=== PATIENT | female | born 1990 | race Caucasian/White ===

== ENCOUNTER 2020-03-20 16:09 | Outpatient (CLI) | payer OTHER, SELFPAY ==
--- NOTE | ~2020-03-20 | US_ITS ---
EXAMINATION: US right upper quadrant EXAM DATE: 03/20/2020 16:44 INDICATION: Abdominal pain. TECHNIQUE: Multiple grayscale and Doppler images of the abdomen right upper quadrant were obtained (b y a technologist who performed the scan) and subsequently reviewed. There is no prior study for kallie bartlett. FINDINGS: The pancreatic head and body are normal in appearance. The pancreatic tail is not visualized. The l iver has normal echogenicity and contour. There are no focal liver lesions identified. There is no evidence of intrahepatic biliary duct dilation. Portal venous flow was seen in the hepatopedal, nor mal direction and has normal Doppler waveform. No right-sided hydronephrosis. Common bile duct measures 5 mm, which is normal. Gallbladder is mildly distended with several sizable gallstones in the fundus. The gallbladder wall measures about 3 mm in thickness, borderline abnormal ly thickened. No pericholecystic fluid. Technologist performing exam reports patient did not demonst rate sonographic Cheng's sign. Please note that this sign is less reliable in patients who have rec eived pain medication. IMPRESSION: Cholelithiasis, borderline thickening of gallbladder wall, but no sonographic Cheng's si gn, pericholecystic fluid or gallbladder distention. Chronic cholecystitis? Reviewed, dictated and finalized at location A. IMPRESSION: Cholelithiasis, borderline thickening of gallbladder wall, but no s onographic Cheng's sign, pericholecystic fluid or gallbladder distention. Ch ronic cholecystitis?
== END 2020-03-20 16:10 | disposition home or self-care (01) ==
LOC: ANHIMG 16:14
PROVIDERS: PCP Internal Medicine; Visit Provider Internal Medicine
DX: R10.9 Unspecified abdominal pain (principal); K80.20 Calculus of gallbladder without cholecystitis without obstruction
CPT/HCPCS: 76705

== ENCOUNTER 2020-04-02 10:52 | Emergency (ER) | payer OTHER, SELFPAY ==
--- NOTE | ~2020-04-02 | CT_ITS ---
EXAMINATION: CT abdomen pelvis w con EXAM DATE: 04/02/2020 13:31 INDICATION: Right upper quadrant pain. History of gallstones. TECHNIQUE: Spiral CT of the abdomen and pelvis was performed following intravenous injection of 100 m L Omnipaque 350. Axial, coronal and sagittal images were reviewed. The dose-length product (DLP) fo r this examination was 656.78 mGy-cm. The exposure was tailored according to patient size (auto mA e xposure control), and iterative reconstruction (ASIR) was used as additional dose reduction technique . There is no prior study for comparison. Correlation was made with right upper quadrant sonogram 10/2020. FINDINGS: The liver, spleen, adrenal glands and pancreas are unremarkable. Gallbladder is moderately distended with gallstone. No adjacent inflammation. Portal and splenic veins are patent. Kidneys e nhance symmetrically. There is no hydronephrosis. The uterus and ovaries are unremarkable, no adne xal mass. The bladder is unremarkable. There is no retroperitoneal or pelvic lymphadenopathy. The appendix is normal. The stomach and small bowel are unremarkable. There is expected amount of c olonic stool. No free intraperitoneal gas. The heart is normal in size. There are no pericardial or pleural effusions. The lung bases are unremarkable. There are no osteoblastic or osteolytic les ions identified. IMPRESSION: Moderately distended gallbladder with gallstone but no adjacent inflammation or biliary d ilation. If chronic cholecystitis or biliary dysfunction suspected clinically, consider HIDA scan. Reviewed, dictated and finalized at location A. IMPRESSION: Moderately distended gallbladder with gallstone but no adjacent inf lammation or biliary dilation. If chronic cholecystitis or biliary dysfunction suspected clinically, consider HIDA scan.
[2020-04-02 11:05] VITALS: BP 134/98; PULSE 80; RESP 16; TEMP 36.4; O2SAT 100
[2020-04-02 11:40] LABS: Basophils Absolute Auto 0.1 K/mm3 (0.0-0.1); Basophils Percent Auto 0.5 % (0.2-1.2); Eosinophils Absolute Auto 0.1 K/mm3 (0-0.3); Eosinophils Percent Auto 0.7 % (0-4.4); Hematocrit 44.6 % (37.0-47.0); Hemoglobin 15.3 g/dL (12.0-15.0); Immature Granulocyte Absolute 0.02 K/mm3 (0.00-0.031); Immature Granulocyte Percent A 0.2 % (0-0.5); Lymphocytes Absolute Auto 1.75 K/mm3 (0.9-3.2); Lymphocytes Percent Auto 16.5 % (18.3-44.2); Mean Corpuscular HGB Conc 34.3 g/dl (32-36); Mean Corpuscular Hemoglobin 31.4 pg (26-34); Mean Corpuscular Volume 91.4 fl (80-100); Mean Platelet Volume 11.8 fl (7.4-10.4); Monocytes Absolute Auto 0.6 K/mm3 (0.1-0.6); Neutrophils Absolute Auto 8.1 K/mm3 (1.3-6.7); Neutrophils Percent Auto 76.1 % (45.5-73.1); Platelet Count Result 267 k/mm3 (150-375); Red Blood Count 4.88 M/mm3 (4.2-5.4); Red Cell Distribution Width 12.7 % (11.5-14.5); White Blood Count 10.6 K/mm3 (4.5-10.0)
--- NOTE | 2020-04-02 11:47 | ED.ABDPAIN ---
HPI - Abdominal Pain General Chief Complaint: Abdominal Pain Stated Complaint: abd pain Time Seen by Provider: 04/02/20 11:29 Source: patient Mode of arrival: ambulatory Limitations: no limitations History of Present Illness HPI narrative: This patient is a 30 year old female who presents for evaluation of right upper abdominal pain. Patient states she has intermittent aching pain to right upper quadrant since Mid February. She has been evaluated by her PCP and she had a gallbladder ultrasound 2 weeks ago that showed gallstones. She is waiting on an appointment with a general surgeon. She has come to the ER today because this morning around 4 am she developed severe right upper abdominal pain with nausea and vomiting. Her pain has continued to be present and she states it is never lasted this long. She ate a hamburger and albanian fries last night because she did not know she was on low fat diet. MD elicited complaint: abdominal pain Onset (ago): hour(s) Location: RUQ Associated symptoms: nausea and vomiting Related Data Allergies Allergy/AdvReac Type Severity Reaction Status Date / Time No Known Allergies Allergy Verified 04/02/20 11:08 Review of Systems Review of Systems: All systems reviewed & are unremarkable except as noted in HPI and below Constitutional: Constitutional: Denies chills and Denies fever(s) Respiratory: Respiratory: Denies cough and Denies dyspnea Gastrointestinal: Gastrointestinal: Reports abdominal pain, Reports nausea and Reports vomiting Genitourinary: Genitourinary: Denies hematuria and Denies flank pain PMFSH Past Medical History Medical History (Updated 04/02/20 @ 14:22 by Brianda Moreira MD) Hypertension Patient denies medical problems Surgical History Surgical History (Updated 04/02/20 @ 11:47 by Brianda Moreira MD) No pertinent past surgical history Family History Family History (Updated 03/26/20 @ 09:54 by July Bailey) Father Gout Other Unknown family medical history Social History Social History Smoking status: Never smoker Substance use: never Gender identity (if verbalized by the patient): Female Spiritual care concerns: No Exam Narrative: Exam Narrative: GENERAL: Well-appearing, well-nourished, and in no acute distress. HEAD: Normocephalic, atraumatic EYES: PERRLA and EOMI, conjunctiva clear without discharge THROAT:Mucous membranes moist, NECK: Supple, without lymphadenopathy or mass RESPIRATORY: No respiratory distress, Airway patent, Respirations non-labored, Clear to auscultation without rales, rhonchi or wheeze HEART: Regular rate and rhythm. No murmur heard. Normal peripheral pulses. ABDOMEN: Soft, RUQ, nondistended, normal active bowel sounds. No masses. No rebound or guarding, No organomegaly. EXTREMITIES: No edema, normal strength with full range of motion. SKIN: Warm, dry, normal color without rash NEURO: Alert and oriented x3. CN 2-12 grossly intact. No focal deficits. PSYCH: Normal mood and affect. Course Reevaluation(s) Reevaluation #1: PAtient states she feels better. She has an appointment with general surgeon tomorrow. I stressed low fat diet. Date: 04/02/20 Time: 14:20 Vital Signs Vital signs: Vital Signs Temperature 97.6 F 04/02/20 11:05 Pulse Rate 80 04/02/20 11:05 Respiratory Rate 16 04/02/20 11:05 Blood Pressure 134/98 H 04/02/20 11:05 Pulse Oximetry 100 04/02/20 11:05 Temperature 97.6 F 04/02/20 11:05 Pulse Rate 72 04/02/20 14:31 Respiratory Rate 16 04/02/20 14:31 Blood Pressure 118/59 L 04/02/20 14:31 Pulse Oximetry 100 04/02/20 14:31 MDM - Abdominal Pain Lab Data Attestation: I reviewed the patient's lab results. Result diagrams: 04/02/20 11:32 04/02/20 11:32 Labs: Lab Results 04/02/20 04/02/20 04/02/20 Range/Units 11:32 11:32 11:32 WBC 10.6 H
[2020-04-02 11:51] LABS: Add Urine Microscopic? YES; Appearance Urine Clear (Clear); Bacteria Urine Trace /hpf; Bilirubin Urine Negative (Negative); Blood Urine Negative (Negative); Color Urine Yellow (Yellow); Glucose Urine UA Negative (Negative); Ketones Urine Trace mg/dL (Negative); Leukocyte Esterase Ur Trace LEU/UL (Negative); Mucus Urine Few /lpf; Nitrate Urine Negative (Negative); Protein Urine 1+ mg/dL (Negative); RBC Urine 0-2 /hpf (0-2); Specific Grav Ur 1.025 (1.001-1.035); Squamous Epithelial Cell Urine Many /hpf (Few); Urobilinogen Urine Negative mg/dL (<2.0); WBC Urine 0-3 /hpf
[2020-04-02 11:53] LABS: Alanine Aminotransferase 21 U/L (4-35); Albumin Level 4.6 g/dL (3.5-5.1); Alkaline Phosphatase 102 U/L (38-126); Aspartate Amino Transferase 34 U/L (14-36); Bilirubin,Total 0.7 mg/dL (0.2-1.3); Blood Urea Nitrogen 6 mg/dL (7-17); Calcium 9.7 mg/dL (8.4-10.2); Carbon Dioxide 26 mmol/L (22-30); Chloride 104 mmol/L (98-107); Estimated CRCL calculation 118 ml/min; Estimated Glomerular Filt Rate > 60; Glucose 105 mg/dL (65-105); Lipase 64 U/L (23-300); Potassium 4.1 mmol/L (3.4-5.0); Sodium 136 mmol/L (137-145)
[2020-04-02] MEDS: ONDANSETRON INJ 4 MG/2 ML VIAL IV PUSH (11:58)
[2020-04-02] MEDS: LACTATED RINGERS 1,000 ML 999 ML IV CONT (11:58)
[2020-04-02 12:00] VITALS: BP 138/75; PULSE 78; RESP 16; O2SAT 100
[2020-04-02] MEDS: KETOROLAC 30 MG/ML VIAL (*BKC) IV PUSH (12:40)
[2020-04-02 13:00] VITALS: BP 129/57; PULSE 69; RESP 16; O2SAT 100
[2020-04-02 14:31] VITALS: BP 118/59; PULSE 72; RESP 16; O2SAT 100
== END 2020-04-02 14:32 | disposition home or self-care (01) ==
PROVIDERS: Emergency Provider General Practice; PCP Internal Medicine
DX: K80.50 Calculus of bile duct without cholangitis or cholecystitis without obstruction (principal); I10 Essential (primary) hypertension
CPT/HCPCS: 36415; 74177; 80053; 81001; 81025; 83690; 85025; 96361; 96365; 96375; 99284; J0131; J1885; J2405; J7120; Q9967

== ENCOUNTER 2020-04-04 00:28 | Outpatient (CLI) | payer OTHER, SELFPAY ==
[2020-04-04 18:07] LABS: SARS-CoV-2 RNA PCR Negative
== END 2020-04-04 00:29 | disposition home or self-care (01) ==
LOC: ANHCOVIDDT 00:28
PROVIDERS: PCP Internal Medicine; Visit Provider Surgery
DX: Z01.812 Encounter for preprocedural laboratory examination (principal); Z20.828 Contact with and (suspected) exposure to other viral communicable diseases
CPT/HCPCS: 87635; C9803; U0003

== ENCOUNTER 2020-04-06 00:48 | Day surgery (SDC) | payer OTHER, SELFPAY ==
[2020-04-03 15:05] VITALS: BMI 31.8
[2020-04-06] VITALS (9 sets, daily range): BP systolic 127–143; BP diastolic 68–90; PULSE 74–104; RESP 11–22; TEMP 36.3–36.8; O2SAT 98–100
--- NOTE | 2020-04-06 11:46 | P.PNAN_ITS ---
Anes - Initial Pre Proc Eval Procedure: Operation Date: 04/06/20 13:30 Proposed Procedures p Laparoscopic Cholecystectomy - Melissa Mccann MD Date/Time: 04/06/20 11:46 Surgeon: Melissa Mccann MD Pre Op Diagnosis: Chronic Cholecystitis, Cholelithiasis Patient Data Age: 30 Gender: F Height: 5 ft 3 in Weight: 80.6 kg Allergies Allergy/AdvReac Type Severity Reaction Status Date / Time No Known Allergies Allergy Verified 04/06/20 11:33 Home Medications Medication Instructions Recorded Confirmed Type hydrocodone-acetaminophen [[place]] 1 tablet PO Q6H PRN #7 tablet 04/02/20 04/03/20 Rx ondansetron HCl [Zofran] 4 mg PO Q8H PRN #10 tablet 04/02/20 04/03/20 Rx acetaminophen [Tylenol Extra 500 mg PO QID PRN 04/03/20 04/06/20 History Strength] ibuprofen 400 mg PO Q6H PRN 04/03/20 04/06/20 History Patient hx anesthesia problems: none Family hx anesthesia problems: none PMFSH Past Medical History Medical History Hypertension Patient denies medical problems Surgical History Surgical History No pertinent past surgical history Family History Family History Father Gout Other Unknown family medical history Social History Social History Smoking status: Never smoker Substance use: never Gender identity (if verbalized by the patient): Female Spiritual care concerns: No Anes - Eval Final PreProcedure Day of Procedure 04/06/20 11:46 Patient weight: obese Heart: regular rate and rhythm Lungs: clear to auscultation Airway: Mallampati scale class II Neurological: alert and oriented Last oral intake: >/= 8 hours ASA classification: II Emergent: no Anesthetic plan: proceed Anesthesia type and monitoring: general ETT and standard monitoring Informed Consent: The patient's anesthetic plan and its attendant risks and benefits were discussed with the patient/family/POA. Questions were solicited and answers provided to the satisfaction of the patient/family/POA.
[2020-04-06] MEDS: SCOPOLAMINE 1.5 MG PATCH TRANSDERM (12:17)
[2020-04-06] MEDS: LACTATED RINGERS 1,000 ML 30 ML IV CONT ×2 (12:17→13:29)
--- NOTE | 2020-04-06 12:23 | WPDHPUPDATE1 ---
History and Physical Update Update Date/Time: 04/06/20 12:23 History and Physical has been reviewed, including an updated exam of the patient. There are NO changes in the patient's condition. Risks, benefits, and alternatives have been discussed and questions answered. Patient agrees to proceed with procedure.
[2020-04-06 12:24] LABS: Amylase 78 U/L (30-110)
[2020-04-06] MEDS: ceFAZolin 2 GM/D5W 50 ML 2 GM/50 ML BAG IVPB (12:28)
[2020-04-06] MEDS: BUPIVACAINE/EPINEPHRINE 0.5% 30 ML VIAL 10 ML INFILTRATE (13:18)
[2020-04-06] MEDS: ONDANSETRON INJ 4 MG/2 ML VIAL IV PUSH ×2 (13:42→15:20)
--- NOTE | 2020-04-06 14:08 | PM.PROC ---
Procedure Note - Detailed Date of procedure: 04/06/20 Pre-op diagnosis: Chronic Cholecystitis, Cholelithiasis Post-op diagnosis: other (acute cholecystitis) Procedure performed: laparoscopic cholecystectomy Description of procedure: The patient was taken to the operating room placed in the supine position. After adequate induction of general anesthesia, the patient was prepped and draped in normal sterile fashion. A time-out was then performed to verify the patient's identity as well as the procedure being performed. I then made a 5 mm incision in the infraumbilical region. Through this, a Veress needle was placed into the peritoneal cavity and CO2 gas was then insufflated. After adequate pneumoperitoneum was achieved, the Veress needle was removed and a 5 mm trocar was placed through this incision. I then placed the laparoscoped through this trocar site and under direct visualization placed a further 12 mm subxiphoid port as well as 2 additional 5 mm ports in the right upper abdomen. The gallbladder was then identified and was noted to be very inflamed. I was able to place a grasper at the dome of the gallbladder and this was retracted anterior and cephalad up over the liver. A 2nd retractor was then placed at the infundibulum and retracted laterally, this allowed visualization of the triangle of Calot. I then was able to visualize the cystic duct in its entirety from its proximal insertion into the gallbladder, to its distal junction with the common hepatic/common bile duct junction. At this point, I carefully skeletonized the proximal cystic duct with the [place] dissector. I then clipped and transected the proximal cystic duct. Next I visualized the cystic artery. Again the artery was skeletonized, clipped, and transected. I then used the Bovie cautery to take down the peritoneal attachments of the gallbladder off the liver bed. Once the gallbladder specimen was completely detached, an endo-pouch was placed through the 12 mm port site. I then placed the gallbladder specimen into the Endo pouch and removed the endo-pouch from the 12 mm port site. The specimen will now be sent to pathology for further review. I then copiously irrigated the right upper quadrant. Hemostasis was noted in the liver bed, the clips were noted to be in good position on both the cystic duct stump and the cystic artery stump. No other pathology was noted in the right upper quadrant. I then moved the laparoscope to the subxiphoid port. No iatrogenic injury or other pathology was noted in the lower abdomen. At this point, the abdomen was desufflated and all ports removed. The fascia of the 12 mm subxiphoid port was closed with a 0 Vicryl figure of 8 suture. All port sites were then closed with 4.O Monocryl subcuticular sutures. Dermabond was placed on each incision. The patient tolerated the procedure well, was extubated in the operating room postoperative and will be transferred to the recovery room in stable condition. Implants: none Anesthesia: GETA Surgeon: Melissa Mccann MD Estimated blood loss (mL): 5 Drains: No Packing: No Pathology: yes Complications: No immediate complications Condition: stable Disposition: PACU Findings: acute cholecystis
== END 2020-04-06 15:35 | disposition home or self-care (01) ==
PROVIDERS: PCP Internal Medicine; Visit Provider Surgery
PROC: 0FT44ZZ Resection of Gallbladder, Percutaneous Endoscopic Approach (ICD-10-PCS; CPT 47562; principal; 2020-04-06 13:30)
DX: K80.10 Calculus of gallbladder with chronic cholecystitis without obstruction (principal); I10 Essential (primary) hypertension; E66.9 Obesity, unspecified; Z68.31 Body mass index [BMI] 31.0-31.9, adult
CPT/HCPCS: 47562; 36415; 82150; 86850; 86900; 86901; 88304; A9270; J0131; J0690; J1100; J2250; J2405; J2704; J2710; J3010; J7120

== ENCOUNTER 2020-08-14 11:22 | Outpatient (CLI) | payer OTHER, SELFPAY ==
[2020-08-14 11:58] LABS: Alanine Aminotransferase 17 U/L (4-35); Albumin Level 4.4 g/dL (3.5-5.1); Alkaline Phosphatase 83 U/L (38-126); Aspartate Amino Transferase 26 U/L (14-36); Bilirubin,Total 0.3 mg/dL (0.2-1.3)
== END 2020-08-14 11:23 | disposition home or self-care (01) ==
PROVIDERS: PCP Internal Medicine
DX: B35.1 Tinea unguium (principal)
CPT/HCPCS: 36415; 80076

== ENCOUNTER 2021-07-02 18:09 | Emergency (ER) | payer OTHER, SELFPAY ==
[2021-07-02 18:20] VITALS: BP 135/86; PULSE 110; RESP 18; TEMP 37.6; O2SAT 100
--- NOTE | 2021-07-02 18:33 | ED.SKABFB ---
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 She now has a weeklong history of pink, raised, crusting quarter sized lesion on her left medial groin crease; symptoms are mild, unrelieved with OTC preparations . No other rash /eruption -she feels like she had a similar lesion in years past on her right lower extremity. No fever, surrounding redness, abdominal pain, lymph nodes, abscess/induration, streaking-but there is some scant discharge [no vaginal discharge-she declines STD testing]. Related Data Home Medications Medication Instructions Recorded Confirmed No Home Medications 07/02/21 07/02/21 Allergies Allergy/AdvReac Type Severity Reaction Status Date / Time No Known Allergies Allergy Verified 07/02/21 18:36 Review of Systems Review of Systems: General/Constitutional: No weight loss,fever Eyes: N0: Redness,discharge Ears/Nose/Throat: No: Epistaxis,ear discharge Respiratory: Denies: Hemoptysis Gastrointestinal: No Vomiting, Bleeding-rectal Skin: No Lumps, REPORTS eruption Neurologic: No Focal Weakness,Sz Hematologic: Denies: Petechiae/Purpura Psychiatric: No: Suicida ideationl All Other Systems: Reviewed and Negative [facility] Past Medical History Medical History (Updated 07/02/21 @ 18:39 by Jan Jasso MD) Hypertension Patient denies medical problems Surgical History Surgical History (Updated 04/18/20 @ 10:28 by Renay Fay) No pertinent past surgical history Status post laparoscopic cholecystectomy 04/03/2020 Family History Family History Father Gout Other Unknown family medical history Social History Social History Smoking status: Never smoker Substance use: never Gender identity (if verbalized by the patient): Female Spiritual care concerns: No Comments At time of signature, agree with nursing past medical, surgical, social and family history. There is no relevant family history pertinent to the presenting complaint Exam Narrative: General Appearance: Overweight/well nourished, Normocephalic, Conjunctiva clear Mouth/Throat: Normal appearing, Supple Respiratory: Airway patent, No respiratory distress GI/: Soft , NT Musculoskeletal: Moves all extremities, Non tender Skin: Warm, Dry; quarter size ecthyma-like lesion on left groin w/o nodes, abscess, streaking Neurological: A&O x3, normal affect Course Vital Signs Vital signs: Vital Signs Temperature 99.7 F H 07/02/21 18:20 Pulse Rate 110 H 07/02/21 18:20 Respiratory Rate 18 07/02/21 18:20 Blood Pressure 135/86 07/02/21 18:20 Pulse Oximetry 100 07/02/21 18:20 Temperature 99.7 F H 07/02/21 18:20 Pulse Rate 110 H 07/02/21 18:20 Respiratory Rate 18 07/02/21 18:20 Blood Pressure 135/86 07/02/21 18:20 Pulse Oximetry 100 07/02/21 18:20 Discharge Plan Discharge Clinical Impression: Folliculitis, Antepartum complication Patient Disposition: Home, Self-Care Condition: Stable Instructions: Antibiotic Form, MRSA (Methicillin-Resistant Staphylococcus Aureus) (ED), Folliculitis (ED) Additional Instructions: Keep photo log of area, follow-up with culture results to [employer]ICE MANAGER on your new patient appointment Take clindamycin with antacid, probiotic and/or food; stop clindamycin if diarrhea occurs Prescriptions: New clindamycin HCl 300 mg capsule 300 mg PO Q6H Qty: 21 RF: 0 mupirocin 2 % ointment 1 a
== END 2021-07-02 18:50 | disposition home or self-care (01) ==
PROVIDERS: Emergency Provider Emergency Medicine; PCP Internal Medicine
DX: O99.711 Diseases of the skin and subcutaneous tissue complicating pregnancy, first trimester (principal); Z3A.00 Weeks of gestation of pregnancy not specified; L73.9 Follicular disorder, unspecified
CPT/HCPCS: 87070; 87075; 87205; 99213; G0463

== ENCOUNTER 2021-07-17 18:14 | Emergency (ER) | payer OTHER, SELFPAY ==
[2021-07-17 18:23] VITALS: BP 140/84; PULSE 97; RESP 18; TEMP 36.9; O2SAT 100
--- NOTE | 2021-07-17 18:49 | ED.GENADULT ---
HPI - General Adult General Chief complaint: Skin/Abscess/Foreign Body Stated complaint: Wound on groin Source: patient Mode of arrival: ambulatory Limitations: no limitations History of Present Illness HPI narrative: Patient is a 31-year-old 8 week female who presents to the urgent care via POV for evaluation of a lump located on genital area that she noticed approx 2 days ago. She reports the area is tender, tight, and swollen . She was seen and treated at this clinic approx 2 weeks ago for an abscess in the same region. She was prescribed an oral and topical antibiotic. She reports the abscess has moderately improved. Denies taking OTC meds for sx. Sitting alleviates tenderness and tightness. Laying down or standing worsens sx. Related Data Home Medications Medication Instructions Recorded Confirmed No Home Medications 07/02/21 07/17/21 Allergies Allergy/AdvReac Type Severity Reaction Status Date / Time No Known Allergies Allergy Verified 07/17/21 18:16 Review of Systems Review of Systems: Denies injury. Pertinent negatives fever, chills, sweats, malaise, poor p.o. intake, change in appetite, headache, LOC, dizziness, streaking, drainage, numbness, tingling, loss of sensation, foreign body sensation, deformity, sob, chest pain, and heart palpitations/murmurs. PMFSH Past Medical History Medical History Hypertension Patient denies medical problems Surgical History Surgical History No pertinent past surgical history Status post laparoscopic cholecystectomy 04/03/2020 Family History Family History Father Gout Other Unknown family medical history Social History Social History Smoking status: Never smoker Substance use: never Gender identity (if verbalized by the patient): Female Spiritual care concerns: No Comments I have reviewed and agree with the patient's past medical, surgical, social, and family hx as documented by the RN. There is no relevant family history pertinent to the presenting complaint. Exam Narrative: GENERAL: Well-appearing, well-nourished, and in no acute distress. HEAD: Normocephalic, atraumatic. No facial swelling appreciated. EYES: PERRLA and EOMI. No evidence of erythema, swelling, or drainage. ENT: Nares clear, no rhinorrhea or epistaxis.Mucous membranes moist and pink. Uvula is midline without erythema and swelling. No evidence of obstruction, petechial rash, cobblestoning, lesions, ulcers, erythema, swelling, exudates, peritonsillar abscess, tenting, or drooling. Breath odor and voice normal. NECK: Supple. No Lymphadenopathy or nuchal rigidity appreciated. CHEST: Bilateral lung mason are clear to auscultation. No respiratory distress. No evidence of cough or pleuritic cp upon examination. HEART: Regular rate and rhythm. No murmur, gallop, or rub heard. EXTREMITIES: Normal range of motion. No edema. SKIN: Warm, dry. No evidence of cellulitis, abscess, streaking, abrasions/lacerations, petechiae, hematoma, contusion, drainage, or bleeding. Large cystlike mass noted to left mons pubis. Mass is hard and mildly tender. Small nontender area of erythema noted under mass. NEURO: No focal deficits. Alert and oriented x3. SPECIAL OBSERVATIONS: Smiling. Laughing. Course Vital Signs Vital signs: Vital Signs Temperature 98.5 F 07/17/21 18:23 Pulse Rate 97 07/17/21 18:23 Respiratory Rate 18 07/17/21 18:23 Blood Pressure 140/84 07/17/21 18:23 Pulse Oximetry 100 07/17/21 18:23 Temperature 98.5 F 07/17/21 18:23 Pulse Rate 97 07/17/21 18:23 Respiratory Rate 18 07/17/21 18:23 Blood Pressure 140/84 07/17/21 18:23 Pulse Oximetry 100 07/17/21 18:23 Due to an elevated blood pres
== END 2021-07-17 18:58 | disposition home or self-care (01) ==
PROVIDERS: Emergency Provider Nurse Practitioner Family; PCP Internal Medicine
DX: O99.891 Other specified diseases and conditions complicating pregnancy (principal); Z3A.08 8 weeks gestation of pregnancy; N90.7 Vulvar cyst
CPT/HCPCS: 99211; G0463

== ENCOUNTER 2021-12-20 15:52 | Outpatient (CLI) | payer OTHER, SELFPAY ==
[2021-12-20] VITALS (10 sets, daily range): BP systolic 118–148; BP diastolic 65–84; PULSE 95–123
[2021-12-20 17:03] LABS: Basophils Absolute Auto 0.1 K/mm3 (0.0-0.1); Basophils Percent Auto 0.5 % (0.2-1.2); Eosinophils Absolute Auto 0.1 K/mm3 (0-0.3); Eosinophils Percent Auto 0.7 % (0-4.4); Immature Granulocyte Absolute 0.16 K/mm3 (0.00-0.031); Immature Granulocyte Percent A 1.6 % (0-0.5); Lymphocytes Absolute Auto 2.53 K/mm3 (0.9-3.2); Lymphocytes Percent Auto 24.9 % (18.3-44.2); Mean Corpuscular HGB Conc 34.3 g/dl (32-36); Mean Corpuscular Hemoglobin 32.6 pg (26-34); Mean Corpuscular Volume 95.1 fl (80-100); Mean Platelet Volume 10.7 fl (7.4-10.4); Monocytes Percent Auto 9.4 % (2.6-8.5); Neutrophils Absolute Auto 6.4 K/mm3 (1.3-6.7); Neutrophils Percent Auto 62.9 % (45.5-73.1); Platelet Count Result 229 k/mm3 (150-375); Red Blood Count 3.68 M/mm3 (4.2-5.4); Red Cell Distribution Width 12.7 % (11.5-14.5); White Blood Count 10.2 K/mm3 (4.5-10.0)
[2021-12-20 17:12] LABS: Add Urine Microscopic? YES; Appearance Urine Cloudy (Clear); Bacteria Urine 1+ /hpf; Bilirubin Urine Negative (Negative); Blood Urine Negative (Negative); Color Urine Yellow (Yellow); Glucose Urine UA 3+ mg/dL (Negative); Ketones Urine Negative (Negative); Leukocyte Esterase Ur 2+ LEU/UL (NEGATIVE); Mucus Urine Rare /lpf; Nitrate Urine Negative (Negative); Protein Urine Negative (Negative); RBC Urine 0-2 /hpf (0-2); Specific Grav Ur 1.013 (1.001-1.035); Squamous Epithelial Cell Urine Few /hpf (Few); Urobilinogen Urine Negative mg/dL (<2.0)
[2021-12-20 17:13] LABS: Alanine Aminotransferase 12 U/L (4-35); Albumin Level 3.6 g/dL (3.5-5.1); Alkaline Phosphatase 77 U/L (38-126); Anion Gap 3 mmol/L (8-16); Aspartate Amino Transferase 23 U/L (14-36); Bilirubin,Total 0.2 mg/dL (0.2-1.3); Blood Urea Nitrogen 6 mg/dL (7-17); Calcium 8.8 mg/dL (8.4-10.2); Carbon Dioxide 25 mmol/L (22-30); Chloride 106 mmol/L (98-107); Estimated Glomerular Filt Rate > 60; Glucose 99 mg/dL (65-110); Potassium 3.1 mmol/L (3.4-5.0); Sodium 134 mmol/L (137-145); Uric Acid 5.1 mg/dL (2.5-7.5)
[2021-12-20 18:07] LABS: Creatinine Urine 84.4 mg/dL; Total Protein Urine Random 9 mg/dL; Ur Ttl Prot Creatinine Ratio 0.11 mg/mg (0-0.20)
== END 2021-12-20 18:30 | disposition home or self-care (01) ==
LOC: ANHOBOP 15:57 → ANHOBPP 15:58
PROVIDERS: PCP Internal Medicine; Visit Provider Obstetrics & Gynecology
DX: O13.9 Gestational [pregnancy-induced] hypertension without significant proteinuria, unspecified trimester (principal); Z3A.00 Weeks of gestation of pregnancy not specified
CPT/HCPCS: 36415; 59025; 80053; 81001; 82570; 84156; 84550; 85025; 87077; 87086; 87088; 99199

== ENCOUNTER 2022-01-14 12:21 | Outpatient (CLI) | payer OTHER, SELFPAY ==
[2022-01-14 12:45] VITALS: BP 136/83; PULSE 108
[2022-01-14 12:46] VITALS: BP 136/83; PULSE 114
[2022-01-14 13:00] VITALS: BP 127/73; PULSE 108
[2022-01-14 13:10] LABS: Basophils Percent Auto 0.3 % (0.2-1.2); Eosinophils Absolute Auto 0.1 K/mm3 (0-0.3); Eosinophils Percent Auto 0.7 % (0-4.4); Hematocrit 34.7 % (37.0-47.0); Hemoglobin 11.8 g/dL (12.0-15.0); Immature Granulocyte Absolute 0.15 K/mm3 (0.00-0.031); Immature Granulocyte Percent A 1.5 % (0-0.5); Lymphocytes Absolute Auto 2.67 K/mm3 (0.9-3.2); Lymphocytes Percent Auto 26.5 % (18.3-44.2); Mean Corpuscular Hemoglobin 32.2 pg (26-34); Mean Corpuscular Volume 94.8 fl (80-100); Mean Platelet Volume 10.6 fl (7.4-10.4); Monocytes Absolute Auto 0.8 K/mm3 (0.1-0.6); Monocytes Percent Auto 7.5 % (2.6-8.5); Neutrophils Absolute Auto 6.4 K/mm3 (1.3-6.7); Neutrophils Percent Auto 63.5 % (45.5-73.1); Platelet Count Result 222 k/mm3 (150-375); Red Blood Count 3.66 M/mm3 (4.2-5.4); Red Cell Distribution Width 12.8 % (11.5-14.5); White Blood Count 10.1 K/mm3 (4.5-10.0)
[2022-01-14 13:14] LABS: Add Urine Microscopic? YES; Appearance Urine Cloudy (Clear); Bacteria Urine Trace /hpf; Bilirubin Urine Negative (Negative); Blood Urine Negative (Negative); Color Urine Yellow (Yellow); Glucose Urine UA Negative (Negative); Ketones Urine Negative (Negative); Leukocyte Esterase Ur Trace LEU/UL (NEGATIVE); Mucus Urine Rare /lpf; Nitrate Urine Negative (Negative); Protein Urine Negative (Negative); RBC Urine 0-2 /hpf (0-2); Specific Grav Ur 1.006 (1.001-1.035); Squamous Epithelial Cell Urine Rare /hpf (Few); Urobilinogen Urine Negative mg/dL (<2.0)
[2022-01-14 13:15] VITALS: BP 132/74; PULSE 111
[2022-01-14 13:23] LABS: Creatinine Urine 32.6 mg/dL; Total Protein Urine Random 15 mg/dL; Ur Ttl Prot Creatinine Ratio 0.46 mg/mg (0-0.20)
[2022-01-14 13:25] LABS: Alanine Aminotransferase 19 U/L (4-35); Albumin Level 3.4 g/dL (3.5-5.1); Alkaline Phosphatase 91 U/L (38-126); Anion Gap 5 mmol/L (8-16); Aspartate Amino Transferase 25 U/L (14-36); Bilirubin,Total 0.3 mg/dL (0.2-1.3); Blood Urea Nitrogen 6 mg/dL (7-17); Calcium 8.6 mg/dL (8.4-10.2); Carbon Dioxide 21 mmol/L (22-30); Chloride 109 mmol/L (98-107); Estimated Glomerular Filt Rate > 60; Glucose 104 mg/dL (65-110); Potassium 3.6 mmol/L (3.4-5.0); Sodium 135 mmol/L (137-145); Uric Acid 4.6 mg/dL (2.5-7.5)
[2022-01-14 13:36] VITALS: BP 137/74; PULSE 102
--- NOTE | 2022-01-14 14:01 | PC.NURSE ---
called Dr. Luis reported PIH lab result and BP. order received for discharge with 24 hour urine collection.
== END 2022-01-14 14:25 | disposition home or self-care (01) ==
LOC: ANHOBOP 12:25 → ANHOBPP 01-20 06:24
PROVIDERS: Advanced Practice Midwife; PCP Internal Medicine; Visit Provider Obstetrics & Gynecology
DX: O13.9 Gestational [pregnancy-induced] hypertension without significant proteinuria, unspecified trimester (principal); Z3A.00 Weeks of gestation of pregnancy not specified
CPT/HCPCS: 36415; 59025; 80053; 81001; 82570; 84156; 84550; 85025; 87086; 99199

== ENCOUNTER 2022-01-18 13:05 | Outpatient (CLI) | payer OTHER, SELFPAY ==
[2022-01-18 13:15] VITALS: BMI 33.3
[2022-01-18 13:37] LABS: Collection Time Urine 24 HOURS
[2022-01-18 13:38] LABS: Patient Weight 194 Lbs; Total Volume 24 Hour Urine 1750 ml
[2022-01-18 13:55] LABS: Total Protein Urine Random 11 mg/dL
[2022-01-18 13:56] LABS: Creatinine Urine 83.3 mg/dL
[2022-01-18 14:01] LABS: Total Protein Urine 24 Hr 192 mg/24hr (28-141); Total Volume 24 Hour Urine 1750 ml
[2022-01-18 14:02] LABS: Creatinine Clearance Urine 227.5 ml/min (75-125)
== END 2022-01-18 13:06 | disposition home or self-care (01) ==
LOC: ANHOBOP 13:12
PROVIDERS: PCP Internal Medicine; Visit Provider Obstetrics & Gynecology
DX: Z34.90 Encounter for supervision of normal pregnancy, unspecified, unspecified trimester (principal); Z3A.00 Weeks of gestation of pregnancy not specified
CPT/HCPCS: 81050; 82575; 84156

== ENCOUNTER 2022-02-11 11:24 | Outpatient (RCR) | payer OTHER, SELFPAY ==
[2022-01-21 12:31] VITALS: BP 125/76; PULSE 114
[2022-01-28 11:56] VITALS: BP 131/75; PULSE 106
[2022-02-04 11:39] VITALS: BP 125/76; PULSE 113
[2022-02-11 12:14] VITALS: BP 123/77; PULSE 98
== END 2022-02-15 13:25 | disposition home or self-care (01) ==
LOC: ANHOBOP 11:24
PROVIDERS: PCP Internal Medicine; Visit Provider Obstetrics & Gynecology
DX: O24.419 Gestational diabetes mellitus in pregnancy, unspecified control (principal); Z3A.34 34 weeks gestation of pregnancy; O16.3 Unspecified maternal hypertension, third trimester; Z3A.35 35 weeks gestation of pregnancy; Z3A.36 36 weeks gestation of pregnancy; Z3A.37 37 weeks gestation of pregnancy
CPT/HCPCS: 59025

== ENCOUNTER 2022-02-12 04:54 | Inpatient (IN) | payer OTHER, SELFPAY ==
[2022-02-12] VITALS (156 sets, daily range): BP systolic 58–143; BP diastolic 32–86; PULSE 77–129; RESP 18; TEMP 36.3–37.1; O2SAT 96–100; BMI 35.5
--- OUTSIDE RECORDS SUMMARY | 2022-02-12 04:58 | XMS_ITS | Encounter Summary ---
:1990 Author Care Team Providers Name Role Phone Henry Goodwin Primary Care Provider [phone] Reason for Visit None recorded. Assessment and Plan 1. Chronic hypertension complica ting AND/OR reason for care during ? non-stress test Discussion Note: None recorded.Patient educational handouts: No information available. Plan of Care Reminders Provider Appointments Ob Routine Kieran lfo Herbert 02/14/2022 MD [place] 11:15AM ? Nst Nst, , EQUI P 02/14/2022 10:45AM ? Ob Routine Rodolf o Herbert 02/18/2022 MD [place] 11:15AM Lab None ? ? recorded. Referral None ? ? recorded. Procedures None ? ? recorded. Surgeries None ? ? recorded. Imaging Non-stress [place] Test 01/24/2022 Medications Name Start Date ? ? Accu-Chek Heather Plus test strips ? TEST BLOOD SUGAR FOUR TIMES DAILY FASTING IN THE MORN ING AND AFTER EACH MEAL Accu-Chek Softclix Lancets ? ? 28 mg-800 mcg tablet ? Medications Administered None recorded. Vitals None recorded. Results
--- OUTSIDE RECORDS SUMMARY | 2022-02-12 04:58 | XMS_ITS | Encounter Summary ---
:1990 Author Care Team Providers Name Role Phone Henry Goodwin Primary Care Provider [phone] Reason for Visit None recorded. Assessment and Plan 1. Gestational diabetes mellitus , class A>1< ? non-stress test Discussion Note: None recorded.Patient educational handouts: No information available. Plan of Care Reminders Provider Appointments Ob Routine Kieran lfo Herbert 02/14/2022 MD [place] 11:15AM ? Nst Nst, , EQUI P 02/14/2022 10:45AM ? Ob Routine Jean Marieolf o Herbert 02/18/2022 MD [place] 11:15AM Lab None ? ? recorded. Referral None ? ? recorded. Procedures None ? ? recorded. Surgeries None ? ? recorded. Imaging Non-stress [place] Test 02/07/2022 Medications Name Start Date ? ? Accu-Chek Heather Plus test strips ? TEST BLOOD SUGAR FOUR TIMES DAILY FASTING IN THE MORN ING AND AFTER EACH MEAL Accu-Chek Softclix Lancets ? ? 28 mg-800 mcg tablet ? Medications Administered None recorded. Vitals None recorded. Results Lab Results
--- OUTSIDE RECORDS SUMMARY | 2022-02-12 04:58 | XMS_ITS | Encounter Summary ---
:1990 Author Care Team Providers Name Role Phone Henry Goodwin Primary Care Provider [phone] Reason for Visit OB visit [id number] Assessment and Plan Assessment Note Patient is ___weeks . Discu ssed plan. 1. Routine care Discussion Note: None recorded.Patient educational handouts: No information available. Plan of Care Reminders Provider Appointments Ob Routine Kieran lfo Herbert 02/14/2022 MD [place] 11:15AM ? Nst Nst, , EQUI P 02/14/2022 10:45AM ? Ob Routine Rodolf o Herbert 02/18/2022 MD [place] 11:15AM Lab None ? ? recorded. Referral None ? ? recorded. Procedures None ? ? recorded. Surgeries None ? ? recorded. Imaging None ? ? recorded. Medications Name Start Date ? ? Accu-Chek Heather Plus test strips ? TEST BLOOD SUGAR FOUR TIMES DAILY FASTING IN THE MORN ING AND AFTER EACH MEAL Accu-Chek Softclix Lancets ? ? 28 mg-800 mcg tablet ? Medications Administered None recorded. Vitals Height Weight BMI
--- OUTSIDE RECORDS SUMMARY | 2022-02-12 04:58 | XMS_ITS | Encounter Summary ---
:1990 Author Care Team Providers Name Role Phone Henry Goodwin Primary Care Provider [phone] Reason for Visit None recorded. Assessment and Plan 1. Chronic hypertension complica ting AND/OR reason for care during ? US, obstetric, follow-up Discussion Note: None recorded.Patient educational handouts: No information available. Plan of Care Reminders Provider Appointments Ob Routine Kieran lfo Herbert 02/14/2022 MD Antonio 11:15AM ? Nst Nst, , EQUI P 02/14/2022 10:45AM ? Ob Routine Rodolf o Herbert 02/18/2022 MD Antonio 11:15AM Lab None ? ? recorded. Referral None ? ? recorded. Procedures None ? ? recorded. Surgeries None ? ? recorded. Imaging , [facility], Follow-up 02/07/2022 Medications Name Start Date ? ? Accu-Chek Heather Plus test strips ? TEST BLOOD SUGAR FOUR TIMES DAILY FASTING IN THE MORN ING AND AFTER EACH MEAL Accu-Chek Softclix Lancets ? ? 28 mg-800 mcg tablet ? Medications Administered None recorded. Vitals None recorded. Res
--- OUTSIDE RECORDS SUMMARY | 2022-02-12 04:58 | XMS_ITS | Encounter Summary ---
:1990 Author Care Team Providers Name Role Phone Henry Goodwin Primary Care Provider [phone] Reason for Visit None recorded. Assessment and [...] ? recorded. Imaging Non-stress [place] Test 01/31/2022 Medications Name Start Date ? ? Accu-Chek Heather Plus test strips ? TEST BLOOD SUGAR FOUR TIMES DAILY FASTING IN THE MORN ING AND AFTER EACH MEAL Accu-Chek Softclix Lancets ? ? 28 mg-800 mcg tablet ? Medications Administered None recorded. Vitals None recorded. Results Lab Results
--- OUTSIDE RECORDS SUMMARY | 2022-02-12 04:58 | XMS_ITS ---
:1990 Author Care Team Providers Name Role Phone TRIP SAMAYOA Primary Care Provider [phone] Allergies Code Code System Name Reaction Severity Status Onset NKDA ? Medications Name Status Start Date Stop Date ? ? Accu-Chek Heather Plus test strips Active ? Not available TEST BLOOD SUGAR FOUR TIMES DAILY FASTING IN THE MORNING AND AF TER EACH MEAL Accu-Chek Softclix Lancets Active ? Not a vailable amoxicillin 875 mg tablet Completed ? 2020 TAKE 1 TABLET BY MOUTH TWICE DAILY clindamycin HCl 300 mg capsule Completed ? 11/18/2020 TAKE 1 CAPSULE BY MOUTH EVERY 6 HOURS. STOP IF DIARRHEA OCCURS clomiphene citrate 50 mg tablet Completed 03/04/2019 03/08/2019 take 1 Tablet by oral route every day for 5 days days 3-7 of c ycle ID NOW COVID-19 Test Kit Completed ? 021 TEST DIRECTED mupirocin 2 % topical ointment Completed ? 11/18/2020 APPLY TOPICALLY TO THE AFFECTED AREA THREE TIMES DAILY Active ? Not available 28 mg-800 mcg tablet Active ? No t available Provera 10 mg tablet Completed 03/04/2019 04/15/2019 take 1 tablet by oral route every day terbinafine HCl 250 mg tablet Completed ? TK 1 T PO QD WF Problems Name Status Onset Date Source ? Body Mass Index 30+ - Obesity Unknown 07/31/2017 Hi story Screening for Malignant Neoplasm of Unknown 07/31/2017 History Cervix
--- OUTSIDE RECORDS SUMMARY | 2022-02-12 04:58 | XMS_ITS | Encounter Summary ---
:1990 Author Care Team Providers Name Role Phone Henry Goodwin Primary Care Provider [phone] Reason for Visit OB visit OB [id number] EDC 03/04/2022 LMP 05/16/2021 Assessment and Plan Assessment Note Patient is __34_weeks . Dis cussed plan. 1. Routine care Discussion Note: None [...]
--- OUTSIDE RECORDS SUMMARY | 2022-02-12 04:58 | XMS_ITS | Encounter Summary ---
:1990 Author Care Team Providers Name Role Phone Henry Goodwin Primary Care Provider [phone] Reason for Visit OB visit Assessment and Plan Assessment Note Patient is [...] Administered None recorded. Vitals Height Weight BMI Blood Pressure 5 ft 4 in
--- OUTSIDE RECORDS SUMMARY | 2022-02-12 04:59 | XMS_ITS | Encounter Summary ---
:1990 Author Care Team Providers Name Role Phone Henry Goodwin Primary Care Provider [phone] Reason for Visit None recorded. Assessment and Plan 1. -induced hypertensio n ? non-stress test Discussion Note: None recorded.Patient [...] ? recorded. Imaging Non-stress [place] Test 01/10/2022 Medications Name Start Date ? ? Accu-Chek Heather Plus test strips ? TEST BLOOD SUGAR FOUR TIMES DAILY FASTING IN THE MORN ING AND AFTER EACH MEAL Accu-Chek Softclix Lancets ? ? 28 mg-800 mcg tablet ? Medications Administered None recorded. Vitals None recorded. Results Lab Results
--- OUTSIDE RECORDS SUMMARY | 2022-02-12 04:59 | XMS_ITS | Encounter Summary ---
:1990 Author Care Team Providers Name Role Phone Henry Goodwin Primary Care Provider [phone] Reason for Visit OB visit Assessment and Plan Assessment Note Patient is ___weeks . Discu ssed plan. 1. -induced hypertensio n Discussion Note: None recorded.Patient educational handouts: No [...]
--- OUTSIDE RECORDS SUMMARY | 2022-02-12 04:59 | XMS_ITS | Encounter Summary ---
:1990 Author Care Team Providers Name Role Phone Henry Goodwin Primary Care Provider [phone] Reason for Visit OB visit Assessment and [...]
--- OUTSIDE RECORDS SUMMARY | 2022-02-12 04:59 | XMS_ITS | Encounter Summary ---
:1990 Author Care Team Providers Name Role Phone Henry Goodwin Primary Care Provider [phone] Reason for Visit OB problem; blood pressure Assessment and Plan 1. Routine care Discussion Note: None recorded.Patient [...] BMI Blood Pressure 5 ft 4 in 195 lbs 33.5 kg/m2 (1) 153/92 mm[H g] (2) 150/90 mm[Hg ]
--- OUTSIDE RECORDS SUMMARY | 2022-02-12 04:59 | XMS_ITS | Encounter Summary ---
:1990 Author Care Team Providers Name Role Phone Henry Goodwin Primary Care Provider [phone] Reason for Visit None recorded. Assessment and [...] Surgeries None ? ? recorded. Imaging , [facility] [facility], Follow-up 01/10/2022 Medications Name Start Date ? ? Accu-Chek Heather Plus test strips ? TEST BLOOD SUGAR FOUR TIMES DAILY FASTING IN THE MORN ING AND AFTER EACH MEAL Accu-Chek Softclix Lancets ? ? 28 mg-800 mcg tablet ? Medications Administered None recorded. Vitals None recorded. Res
--- OUTSIDE RECORDS SUMMARY | 2022-02-12 04:59 | XMS_ITS | Encounter Summary ---
:1990 Author Care Team Providers Name Role Phone Henry Goodwin Primary Care Provider [phone] Reason for Visit OB visit Assessment and Plan 1. Chronic hypertension in obste tric context 2. Dilatation of renal pelvis 3. History of gestational diabet es mellitus Discussion Note: None recorded.Patient educational handouts: No [...]
--- OUTSIDE RECORDS SUMMARY | 2022-02-12 04:59 | XMS_ITS | Encounter Summary ---
:1990 Author Care Team Providers Name Role Phone Henry Goodwin Primary Care Provider [phone] Reason for Visit NST Assessment and Plan 1. Chronic hypertension in obste tric context ? non-stress test Discussion Note: None recorded.Patient [...] ? recorded. Imaging Non-stress [place] Test 01/14/2022 Medications Name Start Date ? ? Accu-Chek Heather Plus test strips ? TEST BLOOD SUGAR FOUR TIMES DAILY FASTING IN THE MORN ING AND AFTER EACH MEAL Accu-Chek Softclix Lancets ? ? 28 mg-800 mcg tablet ? Medications Administered None recorded. Vitals Height Blood Pressure 5 ft 4 in
--- OUTSIDE RECORDS SUMMARY | 2022-02-12 04:59 | XMS_ITS | Encounter Summary ---
:1990 Author Care Team Providers Name Role Phone Henry Goodwin Primary Care Provider [phone] Reason for Visit None recorded. Assessment and Plan 1. condition affecting obs tetrical care of mother ? US, obstetric, follow-up Discussion Note: None [...] recorded. Surgeries None ? ? recorded. Imaging US, [place] [facility], Follow-up 11/20/2021 Medications Name Start Date ? ? Accu-Chek Heather Plus test strips ? TEST BLOOD SUGAR FOUR TIMES DAILY FASTING IN THE MORN ING AND AFTER EACH MEAL Accu-Chek Softclix Lancets ? ? 28 mg-800 mcg tablet ? Medications Administered None recorded. Vitals None recorded. Results Lab Results
--- OUTSIDE RECORDS SUMMARY | 2022-02-12 04:59 | XMS_ITS | Encounter Summary ---
:1990 Author Care Team Providers Name Role Phone Henry Goodwin Primary Care Provider [phone] Reason for Visit None recorded. Assessment and [...] Surgeries None ? ? recorded. Imaging US, [facility], Follow-up 12/20/2021 Medications Name Start Date ? ? Accu-Chek Heather Plus test strips ? TEST BLOOD SUGAR FOUR TIMES DAILY FASTING IN THE MORN ING AND AFTER EACH MEAL Accu-Chek Softclix Lancets ? ? 28 mg-800 mcg tablet ? Medications Administered None recorded. Vitals None recorded. Results Lab Results
--- OUTSIDE RECORDS SUMMARY | 2022-02-12 04:59 | XMS_ITS | Encounter Summary ---
:1990 Author Care Team Providers Name Role Phone Henry Goodwin Primary Care Provider [phone] Reason for Visit OB visit Assessment and Plan Assessment Note Patient is ___weeks . Discu ssed plan. 1. Pre-eclampsia Discussion Note: None recorded.Patient educational handouts: No [...] BMI Blood Pressure 5 ft 4 in 19
--- OUTSIDE RECORDS SUMMARY | 2022-02-12 04:59 | XMS_ITS | Encounter Summary ---
:1990 Author Care Team Providers Name Role Phone Henry Goodwin Primary Care Provider [phone] Reason for Visit None recorded. Assessment and [...] ? recorded. Imaging Non-stress [place] Test 01/17/2022 Medications Name Start Date ? ? Accu-Chek Heather Plus test strips ? TEST BLOOD SUGAR FOUR TIMES DAILY FASTING IN THE MORN ING AND AFTER EACH MEAL Accu-Chek Softclix Lancets ? ? 28 mg-800 mcg tablet ? Medications Administered None recorded. Vitals None recorded. Results Lab Results
--- NOTE | 2022-02-12 05:16 | LDADM ---
This patient, Tayler Scruggs, was admitted to Labor/Delivery/Recovery 103 on 02/12/22 at 04:54. Plans for labor, pain management and were discussed with patient. Patient/family oriented to hospital policies and general routines including ID bracelet, bed and alarms, visiting hours, pain management, procedures, bathroom and other care routines, personal items, smoking policy, room service/diet and guest tray routines, security routines, and visiting hours. Patient/Family are encouraged to report perceived risks to care and to ask questions if they do not understand what they are told or what they should do. See OBIX for further documentation.
[2022-02-12 05:23] LABS: Basophils Percent Auto 0.3 % (0.2-1.2); Eosinophils Absolute Auto 0.1 K/mm3 (0-0.3); Eosinophils Percent Auto 0.9 % (0-4.4); Hematocrit 35.6 % (37.0-47.0); Hemoglobin 11.7 g/dL (12.0-15.0); Immature Granulocyte Absolute 0.14 K/mm3 (0.00-0.031); Immature Granulocyte Percent A 1.4 % (0-0.5); Lymphocytes Absolute Auto 2.78 K/mm3 (0.9-3.2); Lymphocytes Percent Auto 27.9 % (18.3-44.2); Mean Corpuscular HGB Conc 32.9 g/dl (32-36); Mean Corpuscular Hemoglobin 30.6 pg (26-34); Mean Corpuscular Volume 93.2 fl (80-100); Monocytes Absolute Auto 0.7 K/mm3 (0.1-0.6); Monocytes Percent Auto 6.8 % (2.6-8.5); Neutrophils Absolute Auto 6.3 K/mm3 (1.3-6.7); Neutrophils Percent Auto 62.7 % (45.5-73.1); Platelet Count Result 237 k/mm3 (150-375); Red Blood Count 3.82 M/mm3 (4.2-5.4); Red Cell Distribution Width 13.2 % (11.5-14.5)
[2022-02-12] MEDS: LACTATED RINGERS 1,000 ML 125 ML IV CONT ×4 (05:51→14:53)
[2022-02-12] MEDS: AMPICILLIN 2 GM/NS 100 ML 2 GM/100 ML BAG IVPB (05:52)
[2022-02-12] MEDS: OXYTOCIN 30 UNITS/NS 500 ML 30 UNITS/500 ML BAG IV CONT (05:52)
--- NOTE | 2022-02-12 06:04 | WPDANESEPP ---
Anes - Eval Pre Procedure Procedure: labor epidural Date/Time: 02/12/22 06:04 Surgeon: maria elena Pre Op Diagnosis: IOL Patient Data Age: 32 Gender: F Height: 1.6 m Weight: 91 kg Last Vital Signs Pulse 106 H 02/12/22 06:00 BP 137/80 02/12/22 06:00 Allergies Allergy/AdvReac Type Severity Reaction Status Date / Time No Known Allergies Allergy Verified 07/17/21 18:16 Home Medications Medication Instructions Recorded Confirmed Type PNV cmb#95-ferrous fumarate-FA 1 tablet PO DAILY 01/28/22 02/07/22 History [] aspirin 81 mg PO DAILY 01/28/22 02/07/22 History Laboratory Tests 02/12/22 02/12/22 05:13 05:13 WBC 10.0 K/mm3 K/mm3 (4.5-10.0) RBC 3.82 M/mm3 L M/mm3 (4.2-5.4) Hgb 11.7 g/dL L g/dL (12.0-15.0) Hct 35.6 % L % (37.0-47.0) MCV 93.2 fl fl (80-100) MCH 30.6 pg pg (26-34) MCHC 32.9 g/dl g/dl (32-36) RDW 13.2 % % (11.5-14.5) Plt Count 237 k/mm3 k/mm3 (150-375) MPV 11.0 fl H fl (7.4-10.4) Immature Gran % (Auto) 1.4 % H % (0-0.5) Neut % (Auto) 62.7 % % (45.5-73.1) Lymph % (Auto) 27.9 % % (18.3-44.2) [place] % (Auto) 6.8 % % (2.6-8.5) Eos % (Auto) 0.9 % % (0-4.4) Baso % (Auto) 0.3 % % (0.2-1.2) Lymph # (Auto) 2.78 K/mm3 K/mm3 (0.9-3.2) [place] # (Auto) 0.7 K/mm3 H K/mm3 (0.1-0.6) Eos # (Auto) 0.1 K/mm3 K/mm3 (0-0.3) Baso # (Auto) 0.0 K/mm3 K/mm3 (0.0-0.1) Abs Immat Gran (auto) 0.14 K/mm3 H K/mm3 (0.00-0.031) Absolute Neuts (auto) 6.3 K/mm3 K/mm3 (1.3-6.7) Absolute Nucleated RBC 0.0 K/mm3 K/mm3 (0.0-0.012) Nucleated RBC % 0.0 % % (0.0-0.2) RPR Pending Patient hx anesthesia problems: none Family hx anesthesia problems: none Results Review: All pre-operative results and documents have been reviewed as part of the pre-operative evaluation. [facility] Past Medical History Medical History Hypertension Patient denies medical problems Surgical History Surgical History No pertinent past surgical history Status post laparoscopic cholecystectomy 04/03/2020 Family History Family History Father Gout Other Unknown family medical history Social History Social History Smoking status: Never smoker Substance use: never Gender identity (if verbalized by the patient): Female Spiritual care concerns: No Exam Day of Procedure 02/12/22 06:04
[2022-02-12 06:42] LABS: Alanine Aminotransferase 15 U/L (4-35); Albumin Level 3.5 g/dL (3.5-5.1); Alkaline Phosphatase 117 U/L (38-126); Anion Gap 8 mmol/L (8-16); Aspartate Amino Transferase 34 U/L (14-36); Bilirubin,Total 0.6 mg/dL (0.2-1.3); Blood Urea Nitrogen 6 mg/dL (7-17); Carbon Dioxide 21 mmol/L (22-30); Chloride 107 mmol/L (98-107); Estimated CRCL calculation 144 ml/min; Estimated Glomerular Filt Rate > 60; Glucose 118 mg/dL (65-110); Sodium 136 mmol/L (137-145); Uric Acid 4.9 mg/dL (2.5-7.5)
--- NOTE | 2022-02-12 07:31 | P.HPUP_ITS ---
History and Physical Update Update Date/Time: 02/12/22 07:31This patient is a 32-year-old multiparous female at [facility] who presents for elective induction of labor. Artificial rupture membranes was performed. Clear fluid, 3 cm/ 50%/ -2. Reassuring status. Pitocin started. Expectant management. History and Physical has been reviewed, including an updated exam of the patient. There are NO changes in the patient's condition. Risks, benefits, and alternatives have been discussed and questions answered. Patient agrees to proceed with procedure.
[2022-02-12] MEDS: AMPICILLIN 1 GM/NS 50 ML 1 GM/50 ML BAG IVPB ×2 (10:35→14:47)
[2022-02-12 10:51] LABS: Glucose Point of Care 78 mg/dl (65-105)
[2022-02-12 12:23] LABS: Rapid Plasma Reagin Non-Reactive (NonReactive)
[2022-02-12 14:50] LABS: Glucose Point of Care 74 mg/dl (65-105)
[2022-02-12 16:42] LABS: Glucose Point of Care 76 mg/dl (65-105)
--- NOTE | 2022-02-12 17:22 | PM.OBPRVD ---
OB - Delivery Note Procedure Delivery date: 02/12/22 Procedure: Events: Gestational Hypertension Induction method: AROM and Per Pitocin Protocol Delivery monitor: External FHT and External Uterine Route of delivery: Laceration Description: Perineal - 2nd Degree Delivery repair: vicryl Specimen: No Quantitative Blood Loss (ml): 225 Anesthesia type: Epidural Baby Date of : 02/12/22 Time of : 17:11 Weeks of gestation at delivery: 38
[2022-02-12] MEDS: OXYTOCIN 30 UNITS/NS 500 ML 30 UNITS/500 ML BAG 125 UNITS IV CONT (17:42)
[2022-02-12] MEDS: IBUPROFEN 600 MG TABLET PO (19:47)
[2022-02-12] MEDS: WITCH HAZEL 40 PADS 1 PAD TOPICAL (19:48)
[2022-02-12] MEDS: BENZOCAINE 20% AER SPR (*SP) 56 GM CAN 1 SPRAY TOPICAL (19:48)
[2022-02-13] VITALS: BP 123/81; PULSE 88; RESP 18; TEMP 36.4; O2SAT 100
[2022-02-13] MEDS: IBUPROFEN 600 MG TABLET PO ×2 (04:22→15:20)
[2022-02-13 05:17] LABS: Hematocrit 33.7 % (37.0-47.0); Hemoglobin 11.3 g/dL (12.0-15.0)
--- NOTE | 2022-02-13 07:46 | WPDANLDPN2 ---
Anes-Prog Note L&D Date/Time: 02/13/22 07:46 Comfortable throughout: labor and delivery Neuraxial method: epidural Epidural/Spinal procedure site: clean & non-tender Neuro status: Neuro function grossly intact. Cardiovascular status: normal Respiratory status: normal Airway patency: baseline Mental status: baseline Post-Op hydration status: normal Vital Signs: Last Vital Signs Temp 36.4 C 02/13/22 00:00 Pulse 88 02/13/22 00:00 Resp 18 02/13/22 00:00 BP 123/81 02/13/22 00:00 Pulse Ox 100 02/13/22 00:00 Pain score (VAS): 0/10 I/O: Intake & Output 02/12/22 02/12/22 02/13/22 15:59 23:59 07:59 Intake Total 3100 500 Output Total 275 Balance 3100 225 Post-procedural complaints: none Patient feedback: Patient satisfied with anesthetic care.
--- NOTE | 2022-02-13 07:46 | PM.OBPNVD ---
OB - PN: Subj Subjective Date/time seen: 02/13/22 07:46 Patient comments: no complaints, pain well controlled, incisional pain, tolerating diet and flatus present OB - PN: Obj Data Labs CBC & Chem 7: 02/13/22 04:23 02/12/22 06:16 Labs: Laboratory Results - last 24 hr 02/12/22 02/12/22 02/12/22 05:13 10:45 14:46 Hgb Hct POC Capillary Glucose 78 74 RPR Non-reactive 02/12/22 02/13/22 16:40 04:23 Hgb 11.3 L Hct 33.7 L POC Capillary Glucose 76 RPR OB - PN A/P Plan day: 1 Plan: routine care Comments: No problems, routine care Time Spent With Patient Time: Total time spent is greater than 50% in coordination of care (as documented) at patient's floor/unit and/or counseling patient: Exam Const: General: comfortable, no acute distress and alert Resp: Effort & Inspection: normal respiratory effort Auscultation: no crackles, no rales and no rhonchi Cardio: Rate: regular rate Heart sounds: no click, no murmurs and no rubs GI: Inspection: non-distended GI Palp: No Tenderness to palpation present (GI) Auscultation: normal bowel sounds Other: Incision - CDI Extrem: General: normal to inspection, no pedal edema and no calf tenderness
[2022-02-13 08:10] VITALS: BP 125/82; PULSE 97; RESP 16; TEMP 36.5; O2SAT 100
[2022-02-13] MEDS: ACETAMINOPHEN 325 MG TABLET 650 MG PO (09:55)
[2022-02-13] MEDS: MULTIVIT/MIN/PREN/FOL AC/IRON TABLET 1 TAB PO (09:55)
[2022-02-13] MEDS: DOCUSATE SODIUM 100 MG CAPSULE PO (09:55)
[2022-02-13 10:00] VITALS: PULSE 105; RESP 16; O2SAT 100
[2022-02-13 12:10] VITALS: BP 130/81; PULSE 105; RESP 16; TEMP 36.6; O2SAT 100
[2022-02-13 19:46] VITALS: BP 128/84; PULSE 92; RESP 18; TEMP 36.2; O2SAT 100
--- NOTE | 2022-02-14 07:47 | PM.OBPNVD ---
OB - PN: Subj Subjective Date/time seen: 02/14/22 07:47 Patient comments: no complaints baby status: doing well OB - PN: Obj Data Labs CBC & Chem 7: 02/13/22 04:23 02/12/22 06:16 OB - PN A/P Plan day: 2 Plan: routine care and discharge home Time Spent With Patient Time: Total time spent is greater than 50% in coordination of care (as documented) at patient's floor/unit and/or counseling patient: Review of Systems Review of Systems: All systems reviewed & are unremarkable except as noted in HPI and below Exam Const: General: cooperative, healthy appearing and comfortable
--- NOTE | 2022-02-14 07:48 | P.PNOB_ITS ---
OB - PN: Subj Subjective Date/time seen: 02/14/22 07:48 Patient comments: no complaints, pain well controlled and tolerating diet OB - PN: Obj Data Labs CBC & Chem 7: 02/13/22 04:23 02/12/22 06:16 OB - PN A/P Plan day: 2 Plan: routine care and discharge home Time Spent With Patient Time: Total time spent is greater than 50% in coordination of care (as docume nted) at patient's floor/unit and/or counseling patient: Exam Const: General: comfortable and no acute distress Resp: Effort & Inspection: normal respiratory effort Auscultation: no rales, no rhonchi and no wheezes Cardio: Rate: regular rate Heart sounds: no click, no murmurs and no rubs GI: GI Palp: Yes Soft to palpation and No Tenderness to palpation present (GI) Auscultation: normal bowel sounds Extrem: General: normal to inspection, no pedal edema and no calf tenderness
[2022-02-14 08:00] VITALS: BP 132/89; PULSE 101; RESP 19; TEMP 36.9; O2SAT 98
[2022-02-14] MEDS: MULTIVIT/MIN/PREN/FOL AC/IRON TABLET 1 TAB PO (10:19)
--- NOTE | 2022-02-14 18:20 | PC.NURSE ---
Mother discharged to a no care bed at 1820. Supplies given, mother knows she may still order a tray at meal time.
--- NOTE | 2022-02-14 18:20 | PC.NURSE ---
Patient instructed to view the discharge video Mother & Baby Care, The First Two Weeks . Patient was given the opportunity and encouraged to ask questions. Patient verbalized understanding of information shared and has been given the mother/baby guide for home reference.
[2022-02-17 09:37] VITALS: BP 148/81; PULSE 101; RESP 20; TEMP 36.6; O2SAT 100
--- NOTE | 2022-02-17 12:11 | PM.OBDSVD ---
DS: Admitting Diagnosis Discharge Date 02/14/22 Admitting Diagnosis IOL OB - DS: Summary OB Procedures : None OB Procedures Intrapartum: Spontaneous Vag Delivery OB Procedures: : None Time Spent with Patient Time attestation: Total time spent providing and/or coordinating discharge services: DS: Data Data Completed and Pending Pending studies at discharge: Pending at discharge 02/12/22 17:14 Surgical [PTH] Routine Discharge Plan Discharge Attending physician on discharge: Jevon Alvarez Consulting providers: Marisa Aldana Discharging Clinician: Marisa Aldana Patient Disposition: Home, Self-Care Activity: pelvic rest Diet: regular Discharge Instructions: Education: Mom and Baby Guide and Preeclampsia Handout Given to: Mother Follow-Up: Call your delivering provider's office for an appointment to be seen in: 4 Weeks Mom and baby should come to the [facility] for the follow-up appointment. Appointment Date/Time: February 17, 2022 at 9:00 am What to expect at your follow-up visit: Physical Assessment Call [phone] if you are unable to keep your appointment time. BREAST CARE: * Wear a snug supportive bra. * For engorgement discomfort: Breast Feeding: * Apply warm moist washcloths * Express milk as needed to relieve engorgement * Wear loose clothing Bottle Feeding: * May apply ice packs * For sore nipples: * Identify correct latch-on * Apply warm moist washcloths before and after nursing * Air dry nipples after nursing * May apply Lansinoh cream to nipples EPISIOTOMY/PERINEAL CARE: * Until bleeding stops, use your rodríguez bottle after urinating * Change your pad frequently throughout the day * You may take sitz baths several times a day (fill your bathtub with warm water and soak for 20 minutes.) Do NOT bathe in the water * No tub baths until seen by your physician - You may shower ACTIVITY: * Rest as much as possible. * Do not exercise or lift anything heavier than your baby (such as laundry or other children.) * Avoid stairs or driving as much as possible. * Do not put anything into the vagina. No douching, tampons, or sexual activity until seen by physician. NOTIFY PHYSICIAN IF YOU HAVE ANY QUESTIONS OR IF ANY OF THE FOLLOWING SYMPTOMS OCCUR: * If your episiotomy becomes red, swollen, or more painful than what you have experienced in the hospital. * If your vaginal bleeding becomes foul smelling. * If your vaginal bleeding becomes more heavy than a period or if your bleeding changes from pink to bright red. However, you may pass an occasional walnut-sized clot once or twice for the first week . * If you experience a sharp, shooting pain in you calves. * If you discover a hard, reddened area on your breast or if you experience flu-like symptoms. DIET: * Eat regular, well-balanced meals. * Drink plenty of fluids daily. If , drink to thirst. Stand Alone Forms: General Discharge Information Follow-up/Referrals: Jevon Alvarez MD [Physician] - 4 Weeks Discharge Medications: Continued PNV cmb#95-ferrous fumarate-FA [] 28 mg iron- 800 mcg Tablet 1 tablet PO DAILY RF: 0 Discontinued aspirin 81 mg Tablet 81 mg PO DAILY RF: 0 Date of admission: 02/12/22 04:54 Primary Care Provider: Buddy,Henry Taveras Admitting Provider: Jevon Alvarez Attending physician on admission: Jevon Alvarez Condition: Stable
== END 2022-02-14 18:20 | disposition home or self-care (01) | DRG 807 ==
LOC: ANHLDR 04:56 → ANHOB2 20:21
PROVIDERS: Admitting Provider Obstetrics & Gynecology; PCP Internal Medicine; Visit Provider Obstetrics & Gynecology
DX: O13.4 Gestational [pregnancy-induced] hypertension without significant proteinuria, complicating childbirth (principal); Z37.0 Single live birth; Z3A.37 37 weeks gestation of pregnancy; O70.1 Second degree perineal laceration during delivery; O69.81X0 Labor and delivery complicated by cord around neck, without compression, not applicable or unspecified; O99.824 Streptococcus B carrier state complicating childbirth; O24.429 Gestational diabetes mellitus in childbirth, unspecified control
CPT/HCPCS: 36415; 80053; 82948; 84550; 85014; 85018; 85025; 86592; 86850; 86900; 86901; 88307; A9270; J0290; J2590; J2795; J7120